=== PATIENT | male | born 1985 | race Caucasian/White ===

== ENCOUNTER 2021-04-03 10:26 | Emergency (ER) | payer OTHER ==
[2021-04-03 13:05] LABS: BASOPHIL 0.6 % (0-2); EOSINOPHIL 4.3 % (0-5); HCT 48.3 % (42.0-52.0); HGB 15.4 g/dl (13.2-18.0); LYMPHOCYTE 24.2 % (15-48); MCH 28.1 pg (25.0-31.0); MCHC 31.9 g/dL (32.0-36.0); MONOCYTE 8.4 % (0-12); MPV 11.2 fL (6.0-9.5); NEUTROPHIL 61.9 % (41-80); NRBC 0; PLT 249 K/uL (150-400); RBC 5.49 M/uL (4.70-6.00); RDW 14.3 % (11.5-14.0); WBC 12.6 K/uL (4.0-10.5)
[2021-04-03 13:20] LABS: ALBUMIN 3.8 g/dL (3.4-5.0); BILIRUBIN - TOTAL 0.5 mg/dL (0.2-1.0); BUN/CREAT RATIO (CALC) 15.5 RATIO; CREATININE 0.71 mg/dL (0.67-1.17); POTASSIUM 3.6 mmol/L (3.5-5.1); TOTAL PROTEIN 7.8 g/dL (6.4-8.2)
[2021-04-03 15:07] LABS: BILIRUBIN NEGATIVE (NEGATIVE); BLOOD NEGATIVE Ery/uL (NEGATIVE); CLARITY CLEAR (CLEAR); COLOR YELLOW (YELLOW); GLUCOSE (U) 3+ mg/dL (NORMAL); LEUKOCYTES NEGATIVE Leu/uL (NEGATIVE); NITRITE NEGATIVE (NEGATIVE); PROTEIN NEGATIVE (NEGATIVE); SPECIFIC GRAVITY <=1.005 (1.001-1.030); UROBILINOGEN 0.2 mg/dL (0.2-1.0)
[2021-04-03] MEDS ORDERED: METFORMIN HCL500 MG PO (17:28)
== END 2021-04-03 17:50 | disposition home or self-care (01) ==
LOC: FER 10:26
PROVIDERS: Nurse Practitioner Family
DX: E11.9 Type 2 diabetes mellitus without complications (principal); R11.2 Nausea with vomiting, unspecified; R10.32 Left lower quadrant pain; R10.12 Left upper quadrant pain
CPT/HCPCS: 36415; 36600; 80053; 81003; 82803; 85025; J7030; Q9967

== ENCOUNTER 2022-02-22 15:48 | Emergency (ER) | payer OTHER ==
[~2022-02-22 15:48] MED LIST: METFORMIN HCL500 MG PO
== END 2022-02-22 18:50 | disposition home or self-care (01) ==
LOC: FER 15:48
DX: S61.011A Laceration without foreign body of right thumb without damage to nail, initial encounter (principal); F17.210 Nicotine dependence, cigarettes, uncomplicated; Z23 Encounter for immunization; Z28.310 Unvaccinated for COVID-19; W45.8XXA Other foreign body or object entering through skin, initial encounter; Y92.89 Other specified places as the place of occurrence of the external cause; Y99.0 Civilian activity done for income or pay
CPT/HCPCS: 90471; 90715

== ENCOUNTER 2022-03-07 18:47 | Emergency (ER) | payer OTHER ==
[2022-03-07] MEDS ORDERED: NAPROXEN500 MG PO (20:23)
== END 2022-03-07 20:35 | disposition home or self-care (01) ==
LOC: FER 18:47
DX: S86.911A Strain of unspecified muscle(s) and tendon(s) at lower leg level, right leg, initial encounter (principal); S40.022A Contusion of left upper arm, initial encounter; W01.0XXA Fall on same level from slipping, tripping and stumbling without subsequent striking against object, initial encounter; Y93.89 Activity, other specified; Y92.89 Other specified places as the place of occurrence of the external cause; Y99.0 Civilian activity done for income or pay; Z28.310 Unvaccinated for COVID-19
CPT/HCPCS: 73030; 73080; 73564; J1885